=== PATIENT | female | born 1960 | race Hispanic/Latino ===

== ENCOUNTER 2023-04-03 21:10 | Emergency (ER) | payer OTHER ==
[~2023-04-03] VITALS: Ht 157.5 cm; Wt 62.1 kg
[2023-04-03 21:10] VITALS: BP 176/98; PULSE 90; RESP 16
[2023-04-03] MEDS ORDERED: MORPHINE 2 MG SYG IVP ONE (21:30)
[2023-04-03 21:39] LABS: MEAN CORPUSCULAR HEMOGLOBIN 26.8 pg (27.0-33.0); MEAN CORPUSCULAR HGB CONC 32.6 g/dL (32.0-36.0); MEAN CORPUSCULAR VOLUME 82.1 fL (79-99); RED BLOOD CELL COUNT(AUTO) 4.63 MIL/uL (4.00-5.50); RED CELL DISTRIBUTION WIDTH 14.3 % (11.0-15.5); WHITE BLOOD COUNT (AUTO) 6.9 K/uL (4.8-10.8)
[2023-04-03 21:51] LABS: CREATININE 0.6 mg/dL (0.5-1.5); POTASSIUM 3.4 mmol/L (3.5-5.1)
== END 2023-04-03 23:23 | disposition home or self-care (01) ==
LOC: EDH 21:10
DX: S16.1XXA Strain of muscle, fascia and tendon at neck level, initial encounter (principal); W18.39XA Other fall on same level, initial encounter; Y93.89 Activity, other specified; Y92.89 Other specified places as the place of occurrence of the external cause; Y99.8 Other external cause status
CPT/HCPCS: 99285; 70450; 96374; 71045; 80048; 85027; 36415; 73521; 71100; 73030; 72125; 93005; J2270

== ENCOUNTER 2023-04-16 15:32 | Emergency (ER) | payer OTHER ==
[~2023-04-16] VITALS: Ht 152.4 cm; Wt 62.1 kg
[2023-04-16 17:19] LABS: RAPID GROUP A STREP negative (NEGATIVE)
[2023-04-16 17:24] LABS: SARS-CoV-2, RNA, NAAT NEGATIVE SARS CoV-2 (NEGATIVE)
[2023-04-16 17:30] LABS: INFLUENZA TYPE A Negative For Type A (NEGATIVE); INFLUENZA TYPE B Negative For Type B (NEGATIVE)
[2023-04-16 18:17] VITALS: BP 135/71; PULSE 95; RESP 18; O2SAT 98
== END 2023-04-16 18:20 | disposition home or self-care (01) ==
LOC: EDH 15:32
DX: J06.9 Acute upper respiratory infection, unspecified (principal); E11.9 Type 2 diabetes mellitus without complications; I10 Essential (primary) hypertension; E78.00 Pure hypercholesterolemia, unspecified; Z20.822 Contact with and (suspected) exposure to COVID-19
CPT/HCPCS: 82948; 87635; 87804; 87880